=== PATIENT | male | born 1990 | race Caucasian/White ===

== ENCOUNTER 2017-07-15 17:15 | Emergency (ER) | payer SELFPAY ==
[2017-07-15] MEDS ORDERED: NS 1,000 ML IV ONE (17:49)
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
[2017-07-15 18:26] LABS: ETHANOL SERUM 382 mg/dL (0-10)
[2017-07-15 22:10] VITALS: BP 116/74; PULSE 66; RESP 16; TEMP 97.9; O2SAT 96
== END 2017-07-15 22:10 | disposition home or self-care (01) ==
LOC: EDBD 17:15
PROC: 3E0337Z Introduction of Electrolytic and Water Balance Substance into Peripheral Vein, Percutaneous Approach (ICD-10-PCS; principal; 2017-07-15)
DX: F10.920 Alcohol use, unspecified with intoxication, uncomplicated (principal); F17.200 Nicotine dependence, unspecified, uncomplicated; E86.9 Volume depletion, unspecified
CPT/HCPCS: G0480